=== PATIENT | female | born 1995 | race Caucasian/White ===

== ENCOUNTER 2016-12-13 20:55 | Emergency (ER) | payer BC ==
[~2016-12-13 20:55] MED LIST: ONDA4TAB10 SL; TRAM50TA PO
[2016-12-13 21:00] VITALS: BP 125/76
--- NOTE | 2016-12-13 22:42 | ED.ADGEN ---
Past History Past Medical History: Depression, Other Past Surgical History: No Surgical History, Other Smoking: Non-smoker Alcohol Use: Rarely Drug Use: None Adult General Chief Complaint Chief Complaint " I think I got a hemorrhoid... 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 She reports a history of one week of diarrhea and then a week of constipation. She stated she developed this area of tenderness which is felt to be a hemorrhoid. Patient denies any history of medical problems. Exam of rectal area with nursing showed a single 1 cm thrombosed hemorrhoid. Patient has no history of colitis. No history of travel. No history of ill contacts. Patient up-to-date with vaccinations. Patient normally healthy. Review of Systems Review of Systems Constitutional: Denies fever or chills [] Eyes: Denies change in visual acuity, redness, or eye pain [] HENT: Denies nasal congestion or sore throat [] Respiratory: Denies cough or shortness of breath [] Cardiovascular: No additional information not addressed in HPI [] GI: Denies abdominal pain, nausea, vomiting, bloody stools or diarrhea [] complaints of rectal pain and hemorrhoids : Denies dysuria or hematuria [] Musculoskeletal: Denies back pain or joint pain [] Integument: Denies rash or skin lesions [] Neurologic: Denies headache, focal weakness or sensory changes [] Endocrine: Denies polyuria or polydipsia [] Family History Family History Noncontributory Current Medications Current Medications Current Medications Medications (Trade) Dose Ordered Sig/Constantin Start Time Stop Time Status Last Admin Dose Admin Magnesium Hydroxide (Milk Of Magnesia) 2,400 mg 1X ONCE 12/13/16 23:15 12/13/16 23:16 DC 12/13/16 23:54 2,400 MG Tramadol/ Acetaminophen (Ultracet) 1 tab 1X ONCE 12/13/16 23:15 12/13/16 23:16 DC 12/13/16 23:54 1 TAB Allergies Allergies Allergies Coded Allergies Type Severity Reaction Last Updated Verified No Known Drug Allergies 06/04/14 No Physical Exam Physical Exam Constitutional: Well developed, well nourished, in acute distress, non-toxic appearance. [] Tearful HENT: Normocephalic, atraumatic, bilateral external ears normal, oropharynx moist, no oral exudates, nose normal. [] Eyes: PERRLA, EOMI, conjunctiva normal, no discharge. [] Neck: Normal range of motion, no tenderness, supple, no stridor. [] Cardiovascular:Heart rate regular rhythm, no murmur [] Lungs & Thorax: Bilateral breath sounds clear to auscultation [] Abdomen: Bowel sounds normal, soft, no tenderness, no masses, no pulsatile masses. [] Hemorrhoid as per history of present illness Skin: Warm, dry, no erythema, no rash. [] Back: No tenderness, no CVA tenderness. [] Extremities: No tenderness, no cyanosis, no clubbing, ROM intact, no edema. [] Neurologic: Alert and oriented X 3, normal motor function, normal sensory function, no focal deficits noted. [] Psychologic: Affect normal, judgement normal, mood normal. [] Current Patient Data Vital Signs Vital Signs Date Time Temp Pulse Resp B/P Pulse Ox O2 Delivery O2 Flow Rate FiO2 12/13/16 23:54 20 99 Room Air 12/13/16 21:00 98.0 63 EKG EKG [] Radiology/Procedures Radiology/Procedures [] Course & Med Decision Making Course & Med Decision Making Pertinent Labs and Imaging studies reviewed. (See chart for details). Keep stool soft. Do sitz bath at least 4 times a day. Apply HC hemorrhoid suppositories up 4 times a day as needed. Take Keflex 500 mg 3 times a day. Take Flagyl 500 mg 3 times a day. If no resolution of pain and increased symptoms will need to follow with the colorectal surgeon. Patient may take Vicoprofen up to 4 times day but must take with milk of mag prevent constipation. Patient return if any concerns. [] Final Impression Final Impression 1. Hemorrhoid [] Problems: Dragon Disclaimer Dragon Disclaimer This electronic medical record was generated, in whole or in part, using a voice recognition dictation system. TONY AGUILAR MD Dec 13, 2016 22:42
[2016-12-13] MEDS ORDERED: HYDR25SU18 RC (23:13)
[2016-12-13] MEDS ORDERED: CEPH-264 PO (23:13)
[2016-12-13] MEDS ORDERED: METR500T PO (23:13)
[2016-12-13] MEDS ORDERED: HYDR-79 PO (23:13)
[2016-12-13] MEDS ORDERED: ACETAMINOPHEN PO ONE (23:15)
[2016-12-13] MEDS ORDERED: TRAMADOL PO ONE (23:15)
[2016-12-13] MEDS ORDERED: MAGNESIUM HYDROXIDE 2,400 MG/30 ML ORAL.SUSP. PO ONE (23:15)
== END 2016-12-13 23:00 | disposition home or self-care (01) ==
LOC: ER 21:01
DX: K64.9 Unspecified hemorrhoids (principal); K62.89 Other specified diseases of anus and rectum
CPT/HCPCS: 99283

== ENCOUNTER 2017-01-19 18:55 | Emergency (ER) | payer BC ==
[~2017-01-19] VITALS: Ht 162.6 cm; Wt 59.0 kg
[~2017-01-19 18:55] MED LIST changes: +CEPH-264 PO; +HYDR-79 PO; +HYDR25SU18 RC; +METR500T PO
--- NOTE | 2017-01-19 19:41 | ED.ADGEN ---
Past History Past Medical History: No Pertinent History Past Surgical History: No Surgical History Smoking: Non-smoker Alcohol Use: None Drug Use: None Adult General HPI HPI Patient is a 21-year-old woman, with no significant past medical history, who presents to the emergency department with complaint of several weeks of dysuria , with worsening abdominal pain with urination, urinary frequency and urgency. Patient denies any similar symptoms previously. States that she initially began experiencing increasing urinary frequency, including waking up at night, and then began developing abdominal pain that has become progressively worse located in her lower abdomen. She states she currently is on her menses, she does take oral control pills. Denies any other medications or medications for pain. Patient states that she is not noticed any blood in her urine, denies any discharge or drainage from the vagina, any lesions, any injuries, any concerns for STI exposures. 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 Denies any rashes, any joint pain, any back or flank pain, any chest pain, shortness of breath, nausea or vomiting, states she's been experiencing mild upper respiratory type symptoms with a past several days which has been taking DayQuil. Review of Systems Review of Systems Constitutional: Denies fever or chills [] Eyes: Denies change in visual acuity, redness, or eye pain [] HENT: Denies nasal congestion or sore throat [] Respiratory: Denies cough or shortness of breath [] Cardiovascular: No additional information not addressed in HPI [] GI: Lower abdominal pain, no vomiting, bloody stools, diarrhea. No nausea. : Dysuria, no hematuria. Associated frequency and urgency. Musculoskeletal: Denies back pain or joint pain [] Integument: Denies rash or skin lesions [] Neurologic: Denies headache, focal weakness or sensory changes [] Endocrine: Denies polyuria or polydipsia [] Current Medications Current Medications Current Medications Medications (Trade) Dose Ordered Sig/Constantin Start Time Stop Time Status Last Admin Dose Admin Cephalexin HCl (Keflex) 500 mg 1X ONCE 01/19/17 20:00 01/19/17 20:01 DC Ibuprofen (Motrin) 600 mg 1X ONCE 01/19/17 20:00 01/19/17 20:01 DC Phenazopyridine HCl (Pyridium) 200 mg 1X ONCE 01/19/17 20:00 01/19/17 20:01 DC Allergies Allergies Allergies Coded Allergies Type Severity Reaction Last Updated Verified No Known Drug Allergies 06/04/14 No Physical Exam Physical Exam Constitutional: Well developed, well nourished, no acute distress, non-toxic appearance. [] HENT: Normocephalic, atraumatic, bilateral external ears normal, oropharynx moist, no oral exudates, nose normal. [] Eyes: PERRLA, EOMI, conjunctiva normal, no discharge. [] Neck: Normal range of motion, no tenderness, supple, no stridor. [] Cardiovascular:Heart rate regular rhythm, no murmur, S1, S2, rubs or gallops. [] Lungs & Thorax: Bilateral breath sounds clear to auscultation, no wheezing, rhonchi, rales. No chest wall tenderness or crepitus. [] Abdomen: Bowel sounds normal, soft, mild tenderness palpation in the suprapubic region, no masses, no pulsatile masses. [] Skin: Warm, dry, no erythema, no rash. [] Back: No tenderness, no CVA tenderness. [] Extremities: No tenderness, no cyanosis, no clubbing, ROM intact, no edema. [] Neurologic: Alert and oriented X 3, normal motor function, normal sensory function, no focal deficits noted. [] Psychologic: Affect normal, judgement normal, mood normal. [] Current Patient Data Vital Signs Vital Signs Date Time Temp Pulse Resp B/P (MAP) Pulse Ox O2 Delivery O2 Flow Rate FiO2 01/19/17 19:05 98.2 78 18 98 Room Air Lab Results Laboratory Tests Test 01/19/17 19:37 POC Urine HCG, Qualitative hcg negative (Negative) EKG EKG [] Radiology/Procedures Radiology/Procedures [] Course & Med Decision Making Course & Med Decision Making Pertinent Labs and Imaging studies reviewed. (See chart for details) Patient declines any indications for pelvic examination this time, states she is scheduled receive one from her physician in 3 weeks. HCG is negative for , urine dip reveals leukoesterase, blood--patient is on her menses--is negative for nitrates. I did discuss these findings with patient, stating there is some medications for infection. Patient states that she is agreeable to plan to be treated for urinary tract infection at this time, and will return to the ED if any new or concerning symptoms develop, or symptoms persist spite treatment. We had a lengthy discussion at bedside regarding concerning symptoms that would prompt such return. Patient was given Pyridium, Keflex in the emergency department, along with ibuprofen for discomfort. Patient tolerated oral medications without issue. She is given a prescription for Keflex, Pyridium , and naproxen, also given a prescription for Diflucan, to be filled if evidence of candidiasis with antibiotic use does develop. Patient voiced understanding and agreement with instructions and precautions, discharged home in stable condition with plan as above. Final Impression Final Impression [] Problems: Dragon Disclaimer Dragon Disclaimer This electronic medical record was generated, in whole or in part, using a voice recognition dictation system. Departure: Impression: Primary Impression: Urinary tract infection Disposition: HOME, SELF-CARE Condition: IMPROVED Scripts Fluconazole (DIFLUCAN) 150 Mg Tablet 1 TAB PO ONCE Y for SEE COMMENTS, #1 TAB 1 Refill Take one tablet if signs and symptoms of a yeast infection develop as discussed. If symptoms persist, take a second tablet 48 hours after the first. Prov: JUANITA ESPANA DO 01/19/17 Phenazopyridine Hcl (PYRIDIUM) 200 Mg Tablet 200 MG PO PRN TID Y for PAIN, #9 TAB Prov: JUANITA ESPANA DO 01/19/17 Naproxen (NAPROXEN) 250 Mg Tablet 250 MG PO PRN BID Y for PAIN, #10 TAB Prov: JUANITA ESPANA DO 01/19/17 Cephalexin (KEFLEX) 500 Mg Capsule 1 CAP PO BID, #14 CAP Prov: JUANITA ESPANA DO 01/19/17 JUANITA ESPANA DO January 19, 2017 19:41
[2017-01-19] MEDS ORDERED: NAPR250T2 PO (19:55)
[2017-01-19] MEDS ORDERED: CEPH-264 PO (19:55)
[2017-01-19] MEDS ORDERED: PHEN-318 PO (19:55)
[2017-01-19] MEDS ORDERED: FLUC150T PO (19:57)
[2017-01-19] MEDS ORDERED: CEPHALEXIN 500 MG CAPSULE PO ONE (20:00)
[2017-01-19] MEDS ORDERED: IBUPROFEN 600 MG TABLET. PO ONE (20:00)
[2017-01-19] MEDS ORDERED: PHENAZOPYRIDINE 200 MG TABLET. PO ONE (20:00)
[2017-01-19 20:05] VITALS: BP 119/66
[2017-01-19 20:10] LABS: BILIRUBIN,URINE NEG (NEG); CLARITY,URINE CLEAR; COLOR,URINE YELLOW; NITRITE,URINE NEG (NEG); UROBILINOGEN,URINE 0.2 mg/dL (0.2 mg/dL)
[2017-01-19 20:11] LABS: GLUCOSE,URINE NEG (NEG)
== END 2017-01-19 20:18 | disposition home or self-care (01) ==
LOC: ER 18:55
DX: N39.0 Urinary tract infection, site not specified (principal)
CPT/HCPCS: 81003; 81025; 84703; 99284

== ENCOUNTER 2017-01-20 22:26 | Emergency (ER) | payer BC ==
[~2017-01-20] VITALS: Ht 162.6 cm; Wt 59.0 kg
[~2017-01-20 22:26] MED LIST changes: +FLUC150T PO; +NAPR250T2 PO; +PHEN-318 PO
--- NOTE | 2017-01-20 23:13 | ED.ADGEN ---
Past History Past Medical History: No Pertinent History Past Surgical History: No Surgical History Smoking: Non-smoker Alcohol Use: None Drug Use: None Adult General HPI HPI Patient is a patient is a 21-year-old female, who presents to the emergency department with complaints of abdominal pain, nausea, vomiting, loose stool, and lightheadedness. Patient was seen in the emergency department yesterday, at that time she was complaining of pain with urination and abdominal pain that is present for the past several weeks. Patient urine was positive for leuk esterase , and she was prescribed Keflex. Patient states she's been taking his medications as directed, states that the worsening symptoms began about an hour and half ago. Denies any injuries, any fevers or chills, any chest pain or shortness breath, any rashes, pruritus, any sick contacts or exposures. Denies similar symptoms previously. States the pain is worse in the epigastrium in the periumbilical region, describes a sharp stabbing cramping sensation, associated with nausea. Currently he states the pain is 8 of 10. She is not taking any medication for pain prior to coming to the ED. Review of Systems Review of Systems Constitutional: Denies fever or chills [] Eyes: Denies change in visual acuity, redness, or eye pain [] HENT: Denies nasal congestion or sore throat [] Respiratory: Denies cough or shortness of breath [] Cardiovascular: No additional information not addressed in HPI [] GI: Abdominal pain, nausea, vomiting, diarrhea. : Denies dysuria or hematuria [] Musculoskeletal: Denies back pain or joint pain [] Integument: Denies rash or skin lesions [] Neurologic: Denies headache, focal weakness or sensory changes [] Endocrine: Denies polyuria or polydipsia [] Current Medications Current Medications Current Medications Medications (Trade) Dose Ordered Sig/Constantin Start Time Stop Time Status Last Admin Dose Admin Dicyclomine HCl (Bentyl) 20 mg 1X ONCE 01/21/17 00:15 01/21/17 00:16 UNV 01/21/17 00:31 20 MG Famotidine (Pepcid) 20 mg 1X ONCE 01/20/17 23:45 01/20/17 23:46 DC 01/20/17 23:25 20 MG Ketorolac Tromethamine (Toradol) 10 mg 1X ONCE 01/20/17 23:45 01/20/17 23:46 DC 01/20/17 23:25 10 MG Multi-Ingredient Mouthwash/Gargle (Gi Cocktail) 20 ml 1X ONCE 01/21/17 00:00 01/21/17 00:01 UNV 01/21/17 00:00 20 ML Ondansetron HCl (Zofran) 4 mg 1X ONCE 01/20/17 23:45 01/20/17 23:46 DC 01/20/17 23:25 4 MG Sodium Chloride 1,000 ml @ 1,000 mls/hr Q1H 01/20/17 23:30 01/21/17 00:29 DC 01/20/17 23:25 1,000 MLS/HR Allergies Allergies Allergies Coded Allergies Type Severity Reaction Last Updated Verified No Known Drug Allergies 06/04/14 No Physical Exam Physical Exam Constitutional: Well developed, well nourished, no acute distress, non-toxic appearance. [] HENT: Normocephalic, atraumatic, bilateral external ears normal, oropharynx moist, no oral exudates, nose normal. [] Eyes: PERRLA, EOMI, conjunctiva normal, no discharge. [] Neck: Normal range of motion, no tenderness, supple, no stridor. [] Cardiovascular:Heart rate regular rhythm, no murmur , S1, S2, no rubs or gallops. [] Lungs & Thorax: Bilateral breath sounds clear to auscultation, no wheezing, rhonchi, rales. No chest wall crepitus or tenderness. [] Abdomen: Bowel sounds normal, soft, tenderness to palpation in the epigastric region, also mild tenderness to palpation in the periumbilical region, no masses , no pulsatile masses. [] Skin: Warm, dry, no erythema, no rash. [] Back: No tenderness, no CVA tenderness. [] Extremities: No tenderness, no cyanosis, no clubbing, ROM intact, no edema. [] Neurologic: Alert and oriented X 3, normal motor function, normal sensory function, no focal deficits noted. [] Psychologic: Affect normal, judgement normal, mood normal. [] Current Patient Data Vital Signs Vital Signs Date Time Temp Pulse Resp B/P (MAP) Pulse Ox O2 Delivery O2 Flow Rate FiO2 01/20/17 22:26 98.2 74 20 97 Room Air Lab Results Laboratory Tests Test 01/20/17 22:32 01/20/17 23:21 Urine Collection Type Unknown Urine Color [place] Urine Clarity Clear Urine pH 5.0 Urine Specific [place] <=1.005 Urine Protein (NEG-TRACE) Urine Glucose (UA) mg/dL (NEG) Urine Ketones (Stick) mg/dL (NEG) Urine Blood (NEG) Urine Nitrite (NEG) Urine Bilirubin Neg (NEG) Urine Urobilinogen Dipstick mg/dL (0.2 mg/dL) Urine Leukocyte Esterase (NEG) Urine RBC 0 /HPF (0-2) Urine WBC Occ /HPF (0-4) Urine Squamous Epithelial Cells Occ /LPF Urine Bacteria Few /HPF (0-FEW) White Blood Count 11.5 x10^3/uL (4.0-11.0) H Red Blood Count 4.32 x10^6/uL (3.50-5.40) Hemoglobin 13.7 g/dL (12.0-15.5) Hematocrit 40.4 % (36.0-47.0) Mean Corpuscular Volume 94 fL (79-100) Mean Corpuscular Hemoglobin 32 pg (25-35) Mean Corpuscular Hemoglobin Concent 34 g/dL (31-37) Red Cell Distribution Width 12.8 % (11.5-14.5) Platelet Count 255 x10^3/uL (140-400) Neutrophils (%) (Auto) 74 % (31-73) H Lymphocytes (%) (Auto) 19 % (24-48) L Monocytes (%) (Auto) 6 % (0-9) Eosinophils (%) (Auto) 0 % (0-3) Basophils (%) (Auto) 0 % (0-3) Neutrophils # (Auto) 8.5 x10^3uL (1.8-7.7) H Lymphocytes # (Auto) 2.2 x10^3/uL (1.0-4.8) Monocytes # (Auto) 0.7 x10^3/uL (0.0-1.1) Eosinophils # (Auto) 0.0 x10^3/uL (0.0-0.7) Basophils # (Auto) 0.0 x10^3/uL (0.0-0.2) Sodium Level 143 mmol/L (136-145) Potassium Level 3.7 mmol/L (3.5-5.1) Chloride Level 105 mmol/L (98-107) Carbon Dioxide Level 27 mmol/L (21-32) Anion Gap 11 (6-14) Blood Urea Nitrogen 15 mg/dL (7-20) Creatinine 0.8 mg/dL (0.6-1.0) Estimated GFR (Cockcroft-Gault) 88.9 BUN/Creatinine Ratio 19 (6-20) Glucose Level 95 mg/dL (70-99) Calcium Level 8.6 mg/dL (8.5-10.1) Total Bilirubin 0.4 mg/dL (0.2-1.0) Aspartate Amino Transferase (AST) 21 U/L (15-37) Alanine Aminotransferase (ALT) 23 U/L (14-59) Alkaline Phosphatase 64 U/L (46-116) Total Protein 6.9 g/dL (6.4-8.2) Albumin 3.6 g/dL (3.4-5.0) Albumin/Globulin Ratio 1.1 (1.0-1.7) Lipase 235 U/L (73-393) EKG EKG Not indicated. [] Radiology/Procedures Radiology/Procedures Acute abdominal series: 3 view: Normal cardiopulmonary silhouette, no infiltrates, effusions, pneumothorax, no soft tissue or bony abnormalities identified, no free air. Patient with stool and bowel gas throughout, no evidence of air-fluid levels or other signs of obstruction. As interpreted by me. [] Course & Med Decision Making Course & Med Decision Making Pertinent Labs and Imaging studies reviewed. (See chart for details) Patient is tearful and uncomfortable in the emergency department, discussed the patient that she may be experiencing a reaction to her medications, however as the patient has had vague symptoms for some time now, which are now worsening, states her second visit to the emergency department several days, she is agreeable to receiving laboratory studies, abdominal x-ray, and IV fluids and medications. Imaging laboratory studies are reveal any acutely concerning findings. Patient states that she has a "very sensitive stomach", and tends to respond daily to medications. Patient again is taking naproxen, along with Keflex, and Pyridium for a urinary tract infection. This consistent with a gastritis, induced by these medications. Repeat urinalysis reveals there are still some bacteria present in her urine, along with occasional RBCs and WBCs. After lengthy discussion at bedside, patient is agreeable to taking 2 more doses of Keflex, for a total of 3 days of treatment, along with continue the Pyridium, will discontinue naproxen, and will use Maalox or Mylanta, and Bentyl as needed. Patient also prescribe Zofran to be used if needed, and instructed to stay well-hydrated, also discussed concerning symptoms that prompt return to the emergency department, and revisited importance of the patient's follow-up with her primary care providers back in [place]. Patient voiced understanding and agreement with plan as stated, discharged home in stable condition with plan as above. Final Impression Final Impression [] Problems: Dragon Disclaimer Dragon Disclaimer This electronic medical record was generated, in whole or in part, using a voice recognition dictation system. Departure: Impression: Primary Impression: Gastritis Disposition: 01 HOME, SELF-CARE Condition: STABLE Scripts Dicyclomine Hcl (BENTYL) 10 Mg Capsule 10 MG PO PRN QID Y for PAIN, #12 CAP Prov: JUANITA ESPANA DO 01/21/17 Ondansetron Hcl (ZOFRAN) 4 Mg Tablet 1 TAB PO PRN Q8HRS Y for NAUSEA, #12 TAB Prov: JUANITA ESPANA DO 01/21/17 JUANITA ESPANA DO January 20, 2017 23:13
[2017-01-20 23:22] LABS: BILIRUBIN,URINE NEG (NEG); CLARITY,URINE CLEAR; COLOR,URINE ORANGE
[2017-01-20 23:23] LABS: BACTERIA,URINE FEW /HPF (0-FEW); RBC,URINE 0 /HPF (0-2); SQUAMOUS EPITHELIAL CELL,UR OCC /LPF; WBC,URINE OCC /HPF (0-4)
[2017-01-20] MEDS ORDERED: IV NORMAL SALINE 1,000ML 1,000 ML IV SCH (23:30)
[2017-01-20 23:35] LABS: BASO % 0 % (0-3); EOS % 0 % (0-3); HEMATOCRIT 40.4 % (36.0-47.0); HEMOGLOBIN 13.7 g/dL (12.0-15.5); LYMPH # 2.2 x10^3/uL (1.0-4.8); LYMPH % 19 % (24-48); MEAN CORPUSCULAR HEMOGLOBIN 32 pg (25-35); MEAN CORPUSCULAR HGB CONC 34 g/dL (31-37); MEAN CORPUSCULAR VOLUME 94 fL (79-100); MONO # 0.7 x10^3/uL (0.0-1.1); MONO % 6 % (0-9); NEUT # 8.5 x10^3uL (1.8-7.7); NEUT % 74 % (31-73); PLATELET COUNT 255 x10^3/uL (140-400); RED BLOOD COUNT 4.32 x10^6/uL (3.50-5.40); RED CELL DISTRIBUTION WIDTH 12.8 % (11.5-14.5); WHITE BLOOD COUNT 11.5 x10^3/uL (4.0-11.0)
[2017-01-20] MEDS ORDERED: FAMOTIDINE 20 MG/2 ML VIAL IVP ONE (23:45)
[2017-01-20] MEDS ORDERED: ONDANSETRON PF 4 MG/2 ML VIAL. IV ONE (23:45)
[2017-01-20] MEDS ORDERED: KETOROLAC 30 MG/ML VIAL. IV ONE (23:45)
[2017-01-20 23:46] LABS: ALBUMIN 3.6 g/dL (3.4-5.0); ALBUMIN/GLOBULIN RATIO 1.1 (1.0-1.7); CALCIUM 8.6 mg/dL (8.5-10.1); CREATININE 0.8 mg/dL (0.6-1.0); GFR 88.9; POTASSIUM 3.7 mmol/L (3.5-5.1); TOTAL BILIRUBIN 0.4 mg/dL (0.2-1.0); TOTAL PROTEIN 6.9 g/dL (6.4-8.2)
[2017-01-21] MEDS ORDERED: LIDO:MAALOX 1:1 20 ML SINGLE DOSE PO ONE
[2017-01-21] MEDS ORDERED: LIDO:MAALOX 1:1 20 ML SINGLE DOSE ONE (00:03)
[2017-01-21] MEDS ORDERED: DICYCLOMINE HCL 20 MG TABLET PO ONE (00:15)
[2017-01-21] MEDS ORDERED: DICYCLOMINE HCL 20 MG TABLET ONE (00:31)
[2017-01-21] MEDS ORDERED: ONDA4TAB7 PO (00:40)
[2017-01-21] MEDS ORDERED: DICY10CA53 PO (00:40)
[2017-01-21 00:44] VITALS: BP 111/80
--- NOTE | 2017-01-21 08:20 | RAD ---
Indication nausea vomiting and diarrhea. History of gastritis. A single view of the chest as well as flat and upright films of the abdomen were obtained. Comparison is made to similar films September 10, 2015. The heart and pulmonary vessels appear normal. The lungs are clear. Significant pleural fluid is not seen. There is no pneumothorax. The abdominal gas pattern is normal. There is no free air. No organomegaly or abnormal calculi are seen. Several phleboliths are noted in the pelvis similar to the previous exam. IMPRESSION: No acute or significant finding seen in the chest or abdomen on plain films
== END 2017-01-21 00:45 | disposition home or self-care (01) ==
LOC: ER 22:26
DX: K29.60 Other gastritis without bleeding (principal); R42 Dizziness and giddiness
CPT/HCPCS: 36415; 74022; 80053; 81001; 83690; 85027; 96361; 96374; 96375; 99285; J1885; J2405; S0028; J7030